=== PATIENT | female | born 1945 | race Caucasian/White ===

== ENCOUNTER 2017-08-31 16:54 | Emergency (ER) | payer MEDICARE ==
[~2017-08-31] VITALS: Ht 160 cm; Wt 77.1 kg
--- OUTSIDE RECORDS SUMMARY | 2017-08-31 16:57 | XMS REPORT | Clinical Summary ---
Author Author [facility] Address Unknown Phone Unavailable Care Team Providers Care [employer] Name Role Phone Samantha Lennon MD PCP Unavailable Allergies No Known Allergies Current Medications Prescription Sig. Disp. Refills Start End Date Status Date levothyroxine (SYNTHROID, Take 25 mcg by mouth Active LEVOTHROID) 25 MCG tablet every morning. metoprolol tartrate Take 25 mg by mouth 2 Active (LOPRESSOR) 25 MG tablet (two) times a day. insulin ASPART (NovoLOG) Inject under the skin 3 Active 100 unit/mL injection (three) times a day before meals. rOPINIRole (REQUIP) 0.5 Take 0.5 mg by mouth 3 Active MG tablet (three) times a day. pantoprazole (PROTONIX) 11/25/19 Active 40 MG EC tablet 17 venlafaxine XR 02/04/20 Active (EFFEXOR-XR) 150 MG 24 hr 17 capsule olmesartan (BENICAR) 20 02/16/20 Active MG tablet 17 rosuvastatin (CRESTOR) 20 11/22/19 Active MG tablet 17 ALPRAZolam (XANAX) 0.25 02/09/20 Active MG tablet 17 acetaminophen-codeine 02/03/20 Active (TYLENOL WITH CODEINE #3) 17 300-30 mg per tablet ranitidine (ZANTAC) 300 02/16/20 Active MG tablet 17 aspirin (ECOTRIN) 81 MG Take 81 mg by mouth Active enteric coated tablet daily. DOCUSATE CALCIUM (STOOL Take by mouth. Active SOFTENER ORAL) blood-glucose [place] [facility] [place] blood sugar qid 1 each 0 07/14/20 Active 17 blood sugar diagnostic Check blood glucose qid 150 strip 0 07/14/20 Active strips (glucose blood) 17 strip test strips lancets (FINGERSTIX As directed with blood 150 each 0 07/14/20 Active LANCETS) [facility] [place] 17 sodium,potassium,mag Please use as directed 2 Bottle 0 06/11/20 Discontin sulfates (SUPREP BOWEL 16 17 ued PREP KIT) 17.5-3.13-1.6 gram recon solnIndications: Abnormal abdominal CT scan insulin GLARGINE (LANTUS) Inject under the skin 02/17/20 Discontin 100 unit/mL injection nightly. 17 ued clopidogrel (PLAVIX) 75 Take 75 mg by mouth 02/17/20 Discontin mg tablet daily. 17 ued escitalopram (LEXAPRO) 20 Take 20 mg by mouth 02/17/20 Discontin MG tablet daily. 17 ued TOUJEO SOLOSTAR 300 12/18/19 07/14/20 Discontin unit/mL (1.5 mL) insulin 17 17 ued pen TOUJEO SOLOSTAR 300 Inject 34 Units under the 3.4 mL 0 07/14/20 unit/mL (1.5 mL) insulin skin daily for 30 days. 17 18 pen Active Problems Problem Noted Date Cirrhosis of liver without ascites 07/13/2017 Nausea and vomiting 07/12/2017 Constipation 02/16/2017 Dyspepsia 02/16/2017 Gastroesophageal reflux disease 02/16/[address] of the abdomen 02/16/2017 Hypertension Hyperlipidemia GERD (gastroesophageal reflux disease) Diabetes mellitus Encounters Date Type Specialty Care Team Description 07/17/2017 Emergency Emergency Medicine Jc Gonzalez Nonintractable headache, - MD Damien unspecified chronicity 07/18/2017 pattern, unspecified headache type (Primary Dx) 07/12/2017 Emergency General Internal Medicine Chris Carroll Nausea and vomiting, - MD Amari intractability of 07/14/2017 Lul Nazario, vomiting not specified, DO unspecified vomiting type Kacey King MD (Primary Dx);Hyperglycemia;Type 2 diabetes mellitus with hyperglycemia, with long-term current use of insulin 03/19/2017 Procedure Pass Gastroenterology 03/04/2017 Telephone Gastroenterology Yi Moreno MA 02/25/2017 Telephone Gastroenterology Yi Moreno MA 02/16/2017 Office Visit Gastroenterology Jakub Barnett MD Other constipation (Primary Dx);Dyspepsia;Gastroesoph ageal reflux disease, esophagitis presence not specified;Abnormal CT of the abdomen after 08/30/2016 Family History Medical History Relation Name Comments No Known Problems Brother No Known Problems Father No Known Problems Mother No Known Problems Sister Relation Name Status Comments Brother Alive Father Mother Sister Alive Social History Tobacco Use Types Packs/Day Years Used Date Never Smoker Smokeless Tobacco: Never Used Alcohol Use Drinks/Week oz/Week Comments No Sex Assigned at Date Recorded Not on file Last Filed Vital Signs Vital Sign Reading Time Taken Blood Pressure 157/69 07/18/2017 2:19 AM [facility] [employer] Pulse 68 07/18/2017 2:19 AM [employer] Temperature 36.7 C (98 F) 07/18/2017 2:19 AM [employer] Respiratory Rate 22 07/18/2017 2:19 AM [employer] Oxygen Saturation 97% 07/18/2017 2:19 AM [employer] Inhaled Oxygen - - Concentration Weight 75.3 kg (166 lb) 07/12/2017 10:48 PM [employer] Height 163.8 cm (5' 4.5") 07/17/2017 10:54 PM [employer] Body Mass Index 28.49 07/12/2017 10:48 PM [employer] [facility] Plan of Treatment Health Maintenance Due Date Last Done Comments FOOT EXAM 1953 OPHTHALMOLOGY EXAM 1953 URINE MICROALBUMIN 1953 COLONOSCOPY 1993 MAMMOGRAM 1993 ZOSTER VACCINE 2003 PNEUMOCOCCAL 2008 POLYSACCHARIDE VACCINE AGE 65 AND OVER PNEUMOCOCCAL-13 2008 INFLUENZA VACCINE 02/24/2017 Results * CTA Head W Wo Contrast (07/18/2017 1:10 AM) Specimen Performing Laboratory [address] [address] Narrative EXAMINATION: CT ANGIOGRAM HEAD W WO CONTRAST CLINICAL HISTORY: HEADACHE COMPARISON:None TECHNIQUE:Imaging of the intracranial circulation was obtained from the skull base to the vertex during the arterial phase of enhancement. Postprocessing was performed with MIP multiplanar and 3D reconstructed images. CT scans are performed using radiation dose reduction techniques. Technical factors are evaluated and adjusted to ensure appropriate moderation of exposure. Automated dose management technology is applied to adjust radiation exposure while achieving a diagnostic quality image. FINDINGS: A coil mass is present adjacent to the superior basilar artery, most likely representing a previously coiled aneurysm arising between the left TIME STUDY STATISTICIAN and SCA. There is no convincing residual filling. There are no definite aneurysmal dilatations elsewhere in the [place]. The right vertebral artery is hypoplastic and minimally supplies the basilar artery. This probably represents a congenital process. There is no hemodynamically significant stenosis is identified of the intracranial internal carotid arteries, middle cerebral arteries, anterior cerebral arteries, intracranial vertebral arteries, basilar artery or posterior cerebral arteries. There is no aneurysmal dilatation or vascular malformation of the [place]. The major dural sinuses are opacified normally. IMPRESSION: No hemodynamically significant narrowing of the [place] vessels. Prior endovascular coiling of a basilar artery aneurysm. [facility]-[id number] Procedure Note Interface, Radiology Results Incoming - 07/18/2017 1:23 AM [employer] EXAMINATION: CT ANGIOGRAM HEAD W WO CONTRAST CLINICAL HISTORY: HEADACHE COMPARISON: None TECHNIQUE: Imaging of the intracranial circulation was obtained from the skull base to the vertex during the arterial phase of enhancement. Postprocessing was performed with MIP multiplanar and 3D reconstructed images. CT scans are performed using radiation dose reduction techniques. Technical factors are evaluated and adjusted to ensure appropriate moderation of exposure. Automated dose management technology is applied to adjust radiation exposure while achieving a diagnostic quality image. FINDINGS: A coil mass is present adjacent to the superior basilar artery, most likely representing a previously coiled aneurysm arising between the left TIME STUDY STATISTICIAN and SCA. There is no convincing residual filling. There are no definite aneurysmal dilatations elsewhere in the [place]. The right vertebral artery is hypoplastic and minimally supplies the basilar artery. This probably represents a congenital process. There is no hemodynamically significant stenosis is identified of the intracranial internal carotid arteries, middle cerebral arteries, anterior cerebral arteries, intracranial vertebral arteries, basilar artery or posterior cerebral arteries. There is no aneurysmal dilatation or vascular malformation of the [place]. The major dural sinuses are opacified normally. IMPRESSION: No hemodynamically significant narrowing of the [place] vessels. Prior endovascular coiling of a basilar artery aneurysm. [facility]-[id number] * CT Head Wo Contrast (07/18/2017 1:09 AM) Specimen Performing Laboratory [facility] [address] [place] [address] Narrative Examination:CT HEAD WO CONTRAST Clinical History: HEADACHE Comparison: None. CT scan of the brain was performed without intravenous contrast. CT scans are performed using radiation dose reduction techniques.Technical factors are evaluated and adjusted to ensure appropriate moderation of exposure. Automated dose management technology is applied to adjust radiation exposure while achieving a diagnostic quality image. No mass effect or midline shift is seen. The ventricles are normal in size. No intracranial hemorrhage is seen. Bilateral periventricular low densities of the white matter are noted. Marie-white junctions are preserved. Diffuse volume loss is noted. Encephalomalacia in the posterior fossa is noted. Metallic artifact from aneurysm coil is noted. IMPRESSION: 1. Chronic small vessel ischemic disease of the periventricular white matter but no acute intracranial abnormality identified. [facility]-[id number] Procedure Note Interface, Radiology Results Incoming - 07/18/2017 5:58 AM [employer] Examination: CT HEAD WO CONTRAST Clinical History: HEADACHE Comparison: None. CT scan of the brain was performed without intravenous contrast. CT scans are performed using radiation dose reduction techniques. Technical factors are evaluated and adjusted to ensure appropriate moderation of exposure. Automated dose management technology is applied to adjust radiation exposure while achieving a diagnostic quality image. No mass effect or midline shift is seen. The ventricles are normal in size. No intracranial hemorrhage is seen. Bilateral periventricular low densities of the white matter are noted. Marie-white junctions are preserved. Diffuse volume loss is noted. Encephalomalacia in the posterior fossa is noted. Metallic artifact from aneurysm coil is noted. IMPRESSION: 1. Chronic small vessel ischemic disease of the periventricular white matter but no acute intracranial abnormality identified. [facility]-[id number] * XR Shoulder 2+ Vw Left (07/18/2017 1:06 AM) Specimen [facility] [address] [place] [address] Narrative XR SHOULDER 2VW LEFT CLINICAL INDICATION:BONE PAINSHOULDER COMPARISON:None. IMPRESSION: There is no acute fracture or dislocation. 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 The bones are demineralized. [facility]-[id number] Procedure Note Interface, Radiology Results Incoming - 07/18/2017 1:14 AM [employer] XR SHOULDER 2 VW LEFT CLINICAL INDICATION: BONE PAIN SHOULDER COMPARISON: None. IMPRESSION: There is no acute fracture or dislocation. 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 The bones are demineralized. [id number] * POC glucose (07/18/2017 12:38 AM) Only the most recent of 8 results within the time period is included. Component Value Ref Range POC glucose 321 (H) 65 - 100 mg/dL Comment: Meter ID: [id number] Nursing Admin: Violetta Prater Specimen Performing Laboratory Blood [facility] [address] [place] [address] * Estimated GFR (07/17/2017 11:37 PM) Only the most recent of 2 results within the time period is included. Component Value Ref Range GFR Non Af Amer 49 (A) mL/min/1.73 m2 GFR Af Amer 59 (A) mL/min/1.73 m2 Comment: Chronic kidney disease: <60 mL/min/1.73m2 Kidney failure: <15 mL/min/1.73m2 The estimated GFR is calculated from the IDMS-traceable Modification of Diet in Renal Disease Equation. The accuracy of the calculation is poor when the creatinine is normal. Calculated values >90 mL/min/1.73m2 are not reported. This equation has not been validated in children (<18 years), women, the elderly (>70 years), or ethnic groups other than Caucasians and Americans. Specimen Performing Laboratory Plasma specimen [facility] [address] [facility] [place] [address] * CBC with platelet and differential (07/17/2017 11:37 PM) Only the most recent of 2 results within the time period is included. Component Value Ref Range WBC 8.5 4.2 - 11.0 k/uL RBC 4.73 4.04 - 5.86 m/uL HGB 12.6 11.5 - 15.3 g/dL HCT 39.2 34.0 - 45.0 % MCV 82.9 80.0 - 98.0 fL MCH 26.6 (L) 27.0 - 34.0 pg MCHC 32.1 31.5 - 36.5 g/dL RDW - SD 41.1 37.0 - 51.0 fL MPV 11.4 (H) 7.4 - 10.4 fL Platelet count 138 (L) 150 - 400 k/uL Nucleated RBC 0.00 /100 WBC Neutrophils 37.3 36.0 - 66.0 % Lymphocytes 52.0 (H) 24.0 - 44.0 % Monocytes 6.8 (H) 0.0 - 6.0 % Eosinophils 3.2 0.0 - 6.0 % Basophils 0.6 0.0 - 1.2 % Immature granulocytes 0.1 0.0 - 1.0 % Specimen Performing Laboratory Blood [facility] [address] [place] [address] * Comprehensive metabolic panel (07/17/2017 11:37 PM) Only the most recent of 2 results within the time period is included. Component Value Ref Range Sodium 140 135 - 150 mEq/L Potassium 3.9 3.5 - 5.0 mEq/L Chloride 104 100 - 109 mEq/L CO2 29 24 - 32 mmol/L Anion gap 7 7 - 15 mEq/L Comment: Starting from October , anion gap calculation no longer incorporates potassium. Please note the change. BUN 12 7 - 18 mg/dL Creatinine 1.1 0.8 - 1.5 mg/dL Glucose 378 (H) 65 - 100 mg/dL Calcium 8.5 (L) 8.6 - 10.7 mg/dL Protein 7.1 6.3 - 8.2 g/dL Albumin 3.1 (L) 3.2 - 5.0 g/dL A/G ratio 0.8 0.7 - 3.8 Alkaline phosphatase 97 30 - 120 U/L AST 25 15 - 37 U/L ALT 25 (L) 30 - 65 U/L Total bilirubin 0.4 0.2 - 1.2 mg/dL Specimen Performing Laboratory Plasma specimen [facility] [address] [place] [address] * US Gallbladder (07/12/2017 8:57 PM) Specimen Performing Laboratory [facility] [address] [place] [address] Narrative EXAMINATION:US GALLBLADDER CLINICAL HISTORY:Cholecystitis COMPARISON:03/16/2016 abdominal ultrasound. FINDINGS: Gallbladder: There is biliary sludge without a defined gallstone. The gallbladder wall is not thickened and there is no pericholecystic fluid. CBD:4 mm , within normal limits. Portal vein: The portal vein demonstrates normal hepatopedal flow. The portal vein measures 0.9 cm. IMPRESSION: Biliary sludge without a well-defined gallstone. No evidence of acute cholecystitis. [facility]-[id number] Procedure Note Interface, Radiology Results Incoming - 07/12/2017 9:08 PM [employer] EXAMINATION: US GALLBLADDER CLINICAL HISTORY: Cholecystitis COMPARISON: 03/16/2016 abdominal ultrasound. FINDINGS: Gallbladder: There is biliary sludge without a defined gallstone. The gallbladder wall is not thickened and there is no pericholecystic fluid. CBD: 4 mm , within normal limits. Portal vein: The portal vein demonstrates normal hepatopedal flow. The portal vein measures 0.9 cm. IMPRESSION: Biliary sludge without a well-defined gallstone. No evidence of acute cholecystitis. [facility]-[id number] * CT Abdomen Pelvis Wo Contrast (07/12/2017 6:00 PM) Specimen Performing Laboratory [facility] [address] [place] [address] Narrative EXAMINATION:CT ABDOMEN PELVIS WO CONTRAST CLINICAL HISTORY:abd pain TECHNIQUE: Multiple axial images of the abdomen and pelvis were obtained without intravenous administration of iodinated contrast. Sagittal and coronal computerized reformatted images were also obtained. The lack of intravenous contrast reduces the sensitivity of detecting solid organ disease. Radiation dose reduction technique was utilized. COMPARISON:March 15, 2016 CT scan FINDINGS: Abdomen: 1. Liver margin is mildly nodular, similar to prior studies. No focal lesions are noted, but the sensitivity of this examination is limited without intravenous contrast. 2.The gallbladder is distended, but the wall is not thickened and there are no calcified gallstones. 3.The spleen is mildly enlarged. 4.The pancreas, adrenal glands, and kidneys are within normal limits. 5.The abdominal aorta is of normal caliber. There is extensive atherosclerotic calcification the aorta. 6.Mildly prominent mesenteric lymph nodes are nonspecific. 7.No free air or free fluid is noted in the abdomen or pelvis. Pelvis: 1. Postoperative changes in the sigmoid. There are no CT findings of acute diverticulitis. IMPRESSION: Nodular contour of liver suggesting chronic liver disease and cirrhosis. Postoperative changes and sigmoid colon. No acute abnormality noted. [id number] Procedure Note [facility], Radiology Results Incoming - 07/12/2017 6:07 PM [employer] EXAMINATION: CT ABDOMEN PELVIS WO CONTRAST CLINICAL HISTORY: abd pain TECHNIQUE: Multiple axial images of the abdomen and pelvis were obtained without intravenous administration of iodinated contrast. Sagittal and coronal computerized reformatted images were also obtained. The lack of intravenous contrast reduces the sensitivity of detecting solid organ disease. Radiation dose reduction technique was utilized. COMPARISON: March 15, 2016 CT scan FINDINGS: Abdomen: 1. Liver margin is mildly nodular, similar to prior studies. No focal lesions are noted, but the sensitivity of this examination is limited without intravenous contrast. 2. The gallbladder is distended, but the wall is not thickened and there are no calcified gallstones. 3. The spleen is mildly enlarged. 4. The pancreas, adrenal glands, and kidneys are within normal limits. 5. The abdominal aorta is of normal caliber. There is extensive atherosclerotic calcification the aorta. 6. Mildly prominent mesenteric lymph nodes are nonspecific. 7. No free air or free fluid is noted in the abdomen or pelvis. Pelvis: 1. Postoperative changes in the sigmoid. There are no CT findings of acute diverticulitis. IMPRESSION: Nodular contour of liver suggesting chronic liver disease and cirrhosis. Postoperative changes and sigmoid colon. No acute abnormality noted. [id number] * Influenza antigen (07/12/2017 4:20 PM) Component Value Ref Range Influenza antigen Negative for Influenza A/B antigen. Comment: Specimen Information Specimen Source: Nares Specimen Site: Other Specimen Performing Laboratory Nares - Other [facility] [address] [place] [address] * Lipase level (07/12/2017 4:10 PM) Component Value Ref Range Lipase 133 65 - 230 U/L Specimen Performing Laboratory Plasma specimen [facility] [address] [place] [address] * Amylase level (07/12/2017 4:10 PM) Component Value Ref Range Amylase 16 (L) 34 - 122 U/L Specimen Performing Laboratory Plasma specimen [facility] [address] [place] [address] * Urinalysis screen and microscopy, with reflex to culture (07/12/2017 3:52 PM) Component Value Ref Range Specimen site Clean catch Color, UA Yellow Appearance, UA Cloudy Specific gravity, UA 1.035 1.001 - 1.035 pH, UA 5.0 5.0 - 8.5 Protein, UA Negative Negative Glucose, UA 3+ (A) Negative Ketones, UA Trace (A) Negative Bilirubin, UA Negative Negative Blood, UA Negative Negative Nitrite, UA Negative Negative Urobilinogen, UA 4.0 (A) <2.0 Leukocyte esterase, UA Negative Negative Epithelial cells, UA Many /HPF WBC, UA 2 0 - 5 /HPF RBC, UA 5 (A) 0 - 5 /HPF Bacteria, UA None seen None seen Yeast, UA None seen Yeast with pseudohyphae, None seen UA Specimen Performing Laboratory Urine [facility] [address] [place] [address] * Urine culture (07/12/2017 3:52 PM) Component Value Ref Range Urine culture SEE COMMENTComment: Bacteriuria screen negative. Specimen Performing Laboratory Urine [facility] [address] [place] [address] * Hemoglobin A1c (07/12/2017 3:52 PM) Component Value Ref Range Hemoglobin A1C 13.6 (H) 4.0 - 6.0 % Comment: Less than 6% - Goal of therapy for Type II Diabetes Less than 7%- Goal of therapy for Type I Diabetes Less than 8%- Acceptable control for Type I or Type II Diabetes Greater than 8%- Unacceptable control; action indicated. (A [id number]) Specimen Performing Laboratory Blood [facility] [address] [place] [address] after 08/30/2016 Insurance Payer Benefit Subscriber ID Type Phone Address Plan / Group MEDICARE MEDICARE [id number] Medicare [place], [place] [id number] Commercial [employer]
--- OUTSIDE RECORDS SUMMARY | 2017-08-31 16:57 | XMS REPORT | Summary of Care ---
Author Author IVÁN Leone, CARLITOS Organization Unknown Address [facility] Phone Unavailable Care Team Providers Care Tavern Operator Name Role Phone ANGELA Leone, RHIANNON Unavailable Unavailable IVÁN Leone, CARLITOS Unavailable Unavailable TARIQ Leone, CONNOR Unavailable Unavailable GIOVANNY Leone, MANAS Unavailable Unavailable BENTLEY N.P., DARWIN Unavailable Unavailable ANGELA LANGLEY AR, RHIANNON DIAZ Unavailable Unavailable Unavailable Unavailable Functional Status Name Dates Details Functional status health issues are not documented Status: Name Dates Details Cognitive status health issues are not documented Status: Problems Name Dates Details 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 Diverticulitis of colon (562.11, K57.32) Status: Active Allergic rhinitis (477.9, J30.9) Status: Active Rash (782.1, R21) Status: Active Tachycardia (785.0, R00.0) Status: Active Urinary tract infection (599.0, N39.0) Status: Active Diverticulitis of colon (562.11, K57.32) Status: Active Abdominal pain, LLQ (left lower quadrant) (789.04, R10.32) Status: Active Hemorrhoids (455.6, K64.9) Status: Active Acute pharyngitis (462, J02.9) Status: Active Seborrheic dermatitis of scalp (690.18, L21.9) Status: Active Folliculitis (704.8, L73.9) Status: Active Hyperglycemia (790.29, R73.9) Status: Active At risk for nutrition deficiency (V49.89, Z91.89) Status: Active Need for vaccination with 13-polyvalent pneumococcal conjugate vaccine (V03.82 , Z23) Status: Active Uncontrolled type 2 diabetes mellitus (250.02, E11.65) Status: Active Diabetes type 2, uncontrolled (250.02, E11.65) Status: Active Chronic depression (311, F32.9) Status: Active Need for Zostavax administration (V04.89, Z23) Status: Active Diabetes mellitus (250.00, E11.9) Status: Active Taking multiple medications for chronic disease (799.9, R69) Status: Active Anxiety (300.00, F41.9) Status: Active Superficial gastritis without hemorrhage (535.00, K29.30) Status: Active Nausea (787.02, R11.0) Status: Active Essential hypertension with goal blood pressure less than 140/90 (401.9, I10) Status: Active On statin therapy (V58.69, Z79.899) Status: Active Hyperlipidemia (272.4, E78.5) Status: Active Hypothyroidism (244.9, E03.9) Status: Active Alopecia of scalp (704.00, L65.9) Status: Active Daytime hypersomnolence (780.54, G47.19) Status: Active Loss of balance (781.99, R26.89) Status: Active Cognitive impairment (294.9, R41.89) Status: Active Snoring (786.09, R06.83) Status: Active Need for influenza vaccination (V04.81, Z23) Status: Active Type 2 diabetes mellitus treated with insulin (250.00, E11.9) Status: Active BMI 30.0-30.9,adult (V85.30, Z68.30) Status: Active Depressive disorder (311, F32.9) Status: Active Chronic insomnia (780.52, F51.04) Status: Active Depression screening (V79.0, Z13.89) Status: Active Abnormal mini-mental status exam (780.97, F99) Status: Active At risk for falls (V15.88, Z91.81) Status: Active Hyperreflexia (796.1, R29.2) Status: Active Advanced care planning/counseling discussion (V65.49, Z71.89) Status: Active Restless legs syndrome (333.94, G25.81) Status: Active Fatigue (780.79, R53.83) Status: Active Encounter for monitoring long-term proton pump inhibitor therapy (V58.83, Z51.81) Status: Active 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 * Start : 04-May-2017 Active Metoprolol Succinate ER 25 MG Oral Tablet Extended Release 24 Hour TAKE ONE TABLET BY MOUTH TWICE A DAY * Quantity: 28 Refills: 0 RHIANNON MILLER M.D. * Start : 24-Aug-2017 Active HydrOXYzine HCl - 25 MG Oral Tablet TAKE ONE TABLET BY MOUTH AT BEDTIME NEEDED * Quantity: 30 Refills: 5 RHIANNON MILLER M.D. * Start : 05-Mar-2016 Active Rosuvastatin Calcium 20 MG Oral Tablet TAKE ONE TABLET BY MOUTH DAILY * Quantity: 30 Refills: 0 RHIANNON MILLER M.D. * Start : 04-May-2017 Active Clopidogrel Bisulfate 75 MG Oral Tablet TAKE ONE TABLET BY MOUTH DAILY * Quantity: 90 Refills: 0 RHIANNON MILLER M.D. * Start : 17-Oct-2013 Active Multi Vitamin/Minerals Oral Tablet TAKE 1 TABLET DAILY. * Refills: 0 Active Aspirin 81 MG TABS TAKE 1 TABLET DAILY. * Refills: 0 Active Carafate 1 GM/10ML Oral Suspension TAKE 10 ML 3 TIMES DAILY 20 minutes before meals * Quantity: 1200 Refills: 3 RHIANNON MILLER M.D. * Start : 31-Mar-2013 Active ROPINIRole HCl - 0.5 MG Oral Tablet TAKE ONE TABLET BY MOUTH TWICE A DAY * Quantity: 60 Refills: 3 RHIANNON MILLER M.D. * Start : 04-Apr-2013 Active Promethazine HCl - 12.5 MG Rectal Suppository INSERT ONE SUPPOSITORY EVERY 8 HOURS NEEDED FOR NAUSEA AND VOMITING * Quantity: 12 Refills: 1 RHIANNON MILLER M.D. * Start : 15-Dec-2013 Active Promethegan 12.5 MG Rectal Suppository INSERT ONE SUPPOSITORY RECTALLY EVERY 6 HOURS NEEDED FOR NAUSEA AND VOMITING * Quantity: 30 Refills: 1 RHIANNON MILLER M.D. * Start : 13-Oct-2014 Active Capex 0.01 % External Shampoo USE EVERY OTHER DAY * Quantity: 1 Refills: 3 RHIANNON MILLER M.D. * Start : 07-Nov-2014 Active 120 ML Bottle Mariana Contour Next Test In Vitro Strip Check BG 4x a day * Quantity: 2 Refills: 3 GIOVANNY Sulema, MANAS * Start : 18-Jan-2015 Active 100 Strip Box Mariana Microlet Lancets use to Check BG 4 times a day as directed * Quantity: 2 Refills: 4 GIOVANNY Leone, MANAS * Start : 18-Jan-2015 Active 100 Miscellaneous Package BD Pen Needle Mini U/F 31G X 5 MM use as directed to inject insulin 4 times daily * Quantity: 2 Refills: 5 TARIQ Tsering.Angie, CONNOR * Start : 18-Jan-2015 Active 100 Miscellaneous Box NovoLOG FlexPen 100 UNIT/ML Subcutaneous Solution Pen-injector inject 14 units before each meal ; 3 snacks; CF 1: 30 mg/dL, MDD 50 U * Quantity: 1 Refills: 4 TARIQ Sulema, CONNOR * Start : 18-Jan-2015 Active 3 ML Pen (5 Pens) Lantus 100 UNIT/ML Subcutaneous Solution 38 units nightly; Replacing Levemir * Quantity: 2 Refills: 3 TARIQ Leone, CONNOR * Start : 12-Oct-2015 Active 10 ML Vial Accu-Chek SmartView In Vitro Strip TEST 4 TIMES DAILY. * Quantity: 120 Refills: 2 TARIQ Leone, CONNOR * Start : 22-Oct-2015 Active Insulin Syringe 31G X 5/16" 0.5 ML 1 a day * Quantity: 100 Refills: 6 CONNOR POTTER M.D. * Start : 18-Jan-2016 Active Valsartan 160 MG Oral Tablet TAKE ONE TABLET BY MOUTH DAILY * Quantity: 30 Refills: 1 RHIANNON MILLER M.D. * Start : 06-Aug-2017 Active Sertraline HCl - 100 MG Oral Tablet TAKE 1 TABLET DAILY * Quantity: 30 Refills: 1 RHIANNON MILLER M.D. * Start : 25-Apr-2016 Active Synthroid TABS Unknown mg, TAKE 1 TABLET DAILY. * Refills: 0 Active Clindamycin HCl - 300 MG Oral Capsule 1 tablet 3 times daily for 10 days; complete all medication * Quantity: 30 Refills: 0 BENJAMINDARWIN JOHNSON N.P. * Start : 29-Aug-2017 Active MethylPREDNISolone 4 MG Oral Tablet Therapy Pack take one dose pack as directed * Quantity: 1 Refills: 0 DARWIN HAGAN N.P. * Start : 29-Aug-2017 Active 21 Tablet Pack Allergies and Adverse Reactions Name Dates Details Iodine SOLN (Allergy) Status: Denied No Known Drug Allergies (Allergy) Status: Active Past Medical History Name Dates Details History of Aneurysm Of The Basilar Artery (437.3) Status: Resolved History of Hernia (553.9, K46.9) Status: Resolved History of Migraine without status migrainosus, not intractable (346.90, G43.909) Status: Resolved History of Subarachnoid hemorrhage (430, I60.9) Status: Resolved Procedures Procedure Dates Details History of Estrogens Completed History of Appendectomy Completed History of Hysteroscopy Of Uterus Completed History of Cath Stent 1 Initial Completed History of Hysterectomy Completed History of Colon Surgery Completed History of Intracranial Aneurysm Repair Completed Immunization Name Dates Details Pneumococcal polysaccharide vaccine, 23 valent on: 1998 Pneumococcal polysaccharide vaccine, 23 valent on: 2008 Influenza on: 11-Jun-2012 Influenza on: 31-Mar-2013 Influenza on: Apr-2014 Influenza on: 26-Apr-2015 Prevnar 13 Intramuscular Suspension Lot #: [id number] on: 12-Oct-2015 Zoster (Zostavax) Lot #: [id number] on: 05-Dec-2015 Fluzone Quadrivalent 0.5 ML Intramuscular Suspension Lot #: [id number] on: 22-Apr-2016 Fluzone Quadrivalent 0.5 ML Intramuscular Suspension Lot #: [id number] on: 15-May-2017 Family History Name Dates Details Family history of cardiac disorder (V17.49, Z82.49) Comments: Family History Status: Active Family history of hypertension (V17.49, Z82.49) Comments: Family History Status: Active Family history of hyperlipidemia (V18.19, Z83.49) Comments: Family History Status: Active Family history of kidney stones (V18.69, Z84.1) Comments: Family History Status: Active Family history of thyroid disease (V18.19, Z83.49) Comments: Family History Status: Active Name Dates Details Family history of Diabetes Mellitus (V18.0) Status: Active Name Dates Details Family history of Diabetes Mellitus (V18.0) Status: Active Social History Name Dates Details - Status: Name Dates Details Never smoker Vital Signs Date Test Result Details [id number] BP Systolic 129 mm[Hg] Status: Comments: Location: LUE; Position: Sitting BP Diastolic 74 mm[Hg] Status: Comments: Location: LUE; Position: Sitting Height 63 in Status: Weight 171.375 lb Status: Body Mass Index Calculated 30.36 kg/m2 Status: Body Surface Area Calculated 1.81 m2 Status: Temperature 97.6 f Status: Comments: Method: Temporal Heart Rate 97 /min Status: Comments: Location: R Radial; Quality: Normal Respiration Rate 18 /min Status: Comments: Quality: Normal Physical Findings 8 Status: Comments: Pain Scale :14 BP Systolic 136 mm[Hg] Status: Comments: Location: LUE; Position: Sitting BP Diastolic 76 mm[Hg] Status: Comments: Location: LUE; Position: Sitting Height 63 in Status: Weight 168 lb Status: Body Mass Index Calculated 29.76 kg/m2 Status: Body Surface Area Calculated 1.8 m2 Status: Temperature 98 f Status: Comments: Method: Temporal Heart Rate 100 /min Status: Respiration Rate 16 /min Status: Results Date Description Value Details [id number] [O] Streptococcus Test Rapid (In Office) Group A Strep Screen NEGATIVE (Normal) Plan of Care Name Dates Details Planned Observations Planned Goals not documented Interventions Provided Plan* Ms. Khoury failed outpatient therapy. * Referred to ER. Instructions Name Dates Details Instructions not documented Encounters Appointment; RHIANNON MILLER M.D. Encounter Diagnosis: Problem not documented On: 12-Oct-2015 8:30 Appointment; [address]NE[address] Encounter Diagnosis: Problem not documented On: 12-Oct-2015 9:00 Appointment; CONNOR POTTER M.D. Encounter Diagnosis: Problem not documented On: 12-Oct-2015 14:45 Appointment; RHIANNON MILLER M.D. Encounter Diagnosis: Problem not documented On: 05-Dec-2015 13:00 Appointment; CONNOR POTTER M.D. Encounter Diagnosis: Problem not documented On: 18-Jan-2016 13:30 Appointment; RHIANNON MILLER M.D. Encounter Diagnosis: Problem not documented On: 22-Apr-2016 10:30 Appointment; RHIANNON MILLER M.D. Encounter Diagnosis: Problem not documented On: 17-Jun-2016 14:15 Appointment; RHIANNON MILLER M.D. Encounter Diagnosis: Problem not documented On: 15-May-2017 15:45 Appointment; DARWIN HAGAN NP Encounter Diagnosis: Problem not documented On: 29-Aug-2017 9:00 Appointment; CARLITOS MINOR M.D. Encounter Diagnosis: Problem not documented On: 31-Aug-2017 15:00
[2017-08-31] MEDS ORDERED: PANTOPRAZOLE SO40 MG PO (18:56)
[2017-08-31] MEDS ORDERED: HYDROXYZINE HCL25 MG PO (18:56)
[2017-08-31] MEDS ORDERED: METOPROLOL SUCC25 MG (18:56)
[2017-08-31] MEDS ORDERED: CRESTOR10 MG (18:57)
[2017-08-31] MEDS ORDERED: LANTUS 3ML100 UNITS/ (19:03)
[2017-08-31] MEDS ORDERED: SERTRALINE HCL100 MG PO (19:03)
[2017-08-31] MEDS ORDERED: DIOVAN160 MG PO (19:03)
[2017-08-31] MEDS ORDERED: PROMETHAZINE HC25 M1 PO (19:03)
[2017-08-31] MEDS ORDERED: NOVOLOG100 UNIT/1 (19:03)
[2017-08-31] MEDS ORDERED: METHYLPHENIDATE10 MG (19:03)
[2017-08-31] MEDS ORDERED: CARAFATE1 GM/10 ML PO (19:03)
[2017-08-31] MEDS ORDERED: SYNTHROID50 MCG PO (19:03)
[2017-08-31] MEDS ORDERED: CLOPIDOGREL75 MG PO (19:03)
[2017-08-31] MEDS ORDERED: ASPIR 8181 MG (19:03)
[2017-08-31] MEDS ORDERED: ROPINIROLE HC0.25 MG PO (19:03)
[2017-08-31] MEDS ORDERED: CLINDAMYCIN HC150 MG (19:03)
[2017-08-31] MEDS ORDERED: NASONEX17 GM (21:56)
[2017-08-31] MEDS ORDERED: TYLENOL WITH C1 EACH PO (21:56)
[2017-08-31] MEDS ORDERED: BROMFED DM COU118 ML PO (21:56)
[2017-08-31] MEDS ORDERED: XYZAL5 MG PO (21:57)
[2017-08-31 22:14] VITALS: BP 133/67
== END 2017-08-31 22:12 | disposition home or self-care (01) ==
LOC: FSED 16:54
DX: L04.0 Acute lymphadenitis of face, head and neck (principal); J00 Acute nasopharyngitis [common cold]
CPT/HCPCS: 70491; 80053; 85025; 99283